=== PATIENT | female | born 1965 | race Caucasian/White ===

== ENCOUNTER 2023-11-21 05:52 | Inpatient (IN) ==
[~2023-11-21 05:52] MED LIST: Naloxone 0.4 mg VIAL 0.4 mg/ml 1 ml VIAL IV PRN; Ondansetron 4 mg VIAL 2 MG/ML 2 ml VIAL IV PRN
[2023-11-21] MEDS ORDERED: ceFOXitin 2 GM IVPREMIX 2 GM/50 ML BAG ONE (06:24)
[2023-11-21] MEDS ORDERED: Heparin 5000 UNITS/ML 1 mL VIAL ONE (06:39)
[2023-11-21 06:50] LABS: Rapid COVID-19 Molecular Undetected (Undetected)
[2023-11-21] MEDS ORDERED: Propofol 10 MG/ML 20 ML BTL ONE ×2 (06:58→06:59)
[2023-11-21] MEDS ORDERED: Lidocaine 2% PF 5 ML VIAL ONE (06:59)
[2023-11-21] MEDS ORDERED: Midazolam 2 mg/2 ml VIAL 1 mg/ml 2 ml VIAL (2 mg) ONE ×2 (07:00→12:17)
[2023-11-21] MEDS ORDERED: Rocuronium 50 mg VIAL 10 mg/ml 5 ml VIAL (50 mg) ONE ×2 (07:00→08:55)
[2023-11-21] MEDS ORDERED: Sevoflurane BOTTLE ONE ×2 (07:00→07:08)
[2023-11-21] MEDS ORDERED: fentaNYL 250 mcg/5 ml 50 MCG/ML 5 ml VIAL (250 MCG) ONE (07:00)
[2023-11-21] MEDS ORDERED: Glycopyrrolate IV 0.2 MG/ML 1 ML VIAL ONE ×2 (07:01→07:02)
[2023-11-21] MEDS ORDERED: Dexamethasone IV 4 MG/ML VIAL 1 ml VIAL ONE (07:02)
[2023-11-21] MEDS ORDERED: Ondansetron 4 mg VIAL 2 MG/ML 2 ml VIAL ONE ×2 (07:02→12:22)
[2023-11-21] MEDS ORDERED: Phenylephrine IV 10 MG/ML 1 ml VIAL ONE (07:09)
[2023-11-21] MEDS ORDERED: Bupivacaine 0.5% SDV PF 30ML VIAL ONE (07:15)
[2023-11-21] MEDS ORDERED: Methylene Blue 1% (ANTIDOTE) 10 MG/ML 1 ML SDV VIAL IVPB ONE (07:16)
[2023-11-21] MEDS ORDERED: Lidocaine 1% w EPI 1:200,000 SDV 30 ML VIAL ONE (07:16)
[2023-11-21] MEDS ORDERED: Scopolamine 1 mg/72hr PATCH ONE (07:38)
[2023-11-21] MEDS ORDERED: HYDROmorphone 0.5 MG/0.5 ML SYRINGE IV SLOW PU PRN (10:17)
[2023-11-21] MEDS ORDERED: HYDROmorphone 1 MG/1 ML SYRINGE IV SLOW PU PRN (10:17)
[2023-11-21] MEDS ORDERED: HYDROcodone/ACET. 7.5/325 LIQ 15 ML UDC PO PRN (10:17)
[2023-11-21] MEDS ORDERED: fentaNYL 100 mcg/2 ml 50 MCG/ML VIAL ONE (10:28)
[2023-11-21] MEDS: fentaNYL 100 mcg/2 ml 50 MCG/ML VIAL IV PRN (10:30)
[2023-11-21] MEDS: Buffered Lidocaine 1% SYRIN 1 ml INTRADERM ONE (11:23)
[2023-11-21] MEDS: Lactated Ringers 1000 ml BAG 1,000 ML IV SCH ×2 (11:23→11:24)
[2023-11-21] MEDS ORDERED: Albuterol HFA INHALER 8 gm MDI INH PRN (11:30)
[2023-11-21] MEDS: Heparin 5000 UNITS/ML 1 mL VIAL SUBCUT SCH (15:19)
[2023-11-21] MEDS: Ondansetron 4 mg VIAL 2 MG/ML 2 ml VIAL IV PRN (21:26)
[2023-11-21] MEDS: Famotidine IV 10 MG/ML 2 ml VIAL (20 mg) IV SLOW PU SCH (21:27)
[2023-11-22] MEDS: D5W 1/2 NS KCl 20 meq 1000 ml 1,000 ML IV SCH (09:03)
[2023-11-22] MEDS ORDERED: Prochlorperazine 5 mg/ml 2 ml VIAL (10 mg) IV PRN (09:43)
[2023-11-22 10:28] VITALS: BP 109/59
== END 2023-11-22 14:35 | disposition home or self-care (01) | DRG 222 ==
LOC: OR 05:52 → SSU 10:17
PROVIDERS: ADMIT Surgery; ATTEND Surgery